=== PATIENT | male | born 1950 | race Caucasian/White ===

== ENCOUNTER → 2025-01-15 08:40 | Outpatient (BNVA) | payer OTHER, SELFPAY | PROVIDERS: Referring Provider Family Medicine; Visit Provider Anesthesiology Pain Medicine | DX: M54.2 Cervicalgia (principal); M54.9 Dorsalgia, unspecified; M43.26 Fusion of spine, lumbar region; M51.16 Intervertebral disc disorders with radiculopathy, lumbar region; Z87.891 Personal history of nicotine dependence | CPT/HCPCS: 72040; 72072; 72110 ==

== ENCOUNTER 2025-01-25 08:33 | Outpatient (CLI) | payer OTHER, SELFPAY ==
--- NOTE | 2025-01-25 08:45 | MR_ITS ---
WS: [id number] MRI LUMBAR SPINE NONCONTRAST TECHNIQUE: Sagittal T1, T2 and STIR imaging. Axial T1 and T2 imaging. CLINICAL INFORMATION: M54.16 - Radiculopathy, lumbar region COMPARISON: None. FINDINGS: Mild lumbar curve. Moderate spondylitic changes. Disc space narrowing L2-L3. Endplate degenerative changes at this level. Pedicle screw fixation L4-5 with interbody fusion. L1-L2: Mild annular bulging. Mild facet arthropathy. Slight narrowing of the subarticular recess bilaterally. Mild RIGHT foraminal narrowing. L2-L3: Disc osteophyte complex with impingement on the LEFT subarticular recess. LEFT foraminal protrusion with moderate to severe LEFT foraminal narrowing and impingement on the exiting LEFT L2 nerve root. Moderate facet arthropathy. L3-L4: Slight retrolisthesis. Mild annular bulging. Impingement RIGHT greater than LEFT subarticular recess. Moderate facet arthropathy. Moderate LEFT greater than RIGHT foraminal narrowing. L4-L5: Postoperative changes. Laminectomy defects. Spinal canal and foramen are patent. L5-S1: Disc osteophyte complex with endplate ridging. Impingement RIGHT S1 nerve root. Moderate RIGHT and mild to moderate LEFT foraminal narrowing. Advanced facet arthropathy at this level. Visualized pelvic bony structures: Normal. Paravertebral soft tissues: Normal. MR/MR lumbar spine wo con* [id number] IMPRESSION: 1. Pedicle screw fixation L4-L5 with interbody fusion graft. 2. Disc osteophyte complex L2-3 with impingement LEFT subarticular recess and moderate to severe LEFT foraminal narrowing. 3. Disc bulging L3-4 with impingement on the RIGHT greater than LEFT subarticu lar recess and mild central canal stenosis. Moderate bilateral foraminal narrow ing. 4. Disc osteophyte complex L5-S1 impinges the RIGHT S1 nerve root in the subar ticular recess. Moderate RIGHT foraminal narrowing.
== END 2025-01-25 08:34 | disposition home or self-care (01) ==
LOC: RAD 08:36
PROVIDERS: PCP Family Medicine; Visit Provider Anesthesiology Pain Medicine
DX: M54.16 Radiculopathy, lumbar region (principal); Z98.890 Other specified postprocedural states; M25.78 Osteophyte, vertebrae; R93.7 Abnormal findings on diagnostic imaging of other parts of musculoskeletal system; M48.061 Spinal stenosis, lumbar region without neurogenic claudication; M51.369 Other intervertebral disc degeneration, lumbar region without mention of lumbar back pain or lower extremity pain; M48.07 Spinal stenosis, lumbosacral region; M43.8X6 Other specified deforming dorsopathies, lumbar region; M47.896 Other spondylosis, lumbar region; M47.897 Other spondylosis, lumbosacral region
CPT/HCPCS: 72148

== ENCOUNTER 2025-02-13 08:54 | Oncology outpatient (recurring) (ONCR) | payer MEDICARE, OTHER, SELFPAY ==
[2025-02-13 09:56] VITALS: BP 150/77; PULSE 59; RESP 16; TEMP 35.7; O2SAT 96
[2025-02-13] MEDS: SODIUM CHLORIDE 0.9% IV (10:27)
[2025-02-13] MEDS: [UNRECOGNIZED DRUG - OTHER] IV (10:27)
[2025-02-13 11:19] VITALS: BP 188/76; PULSE 62; RESP 17; TEMP 36.2; O2SAT 96
== END 2025-02-13 23:59 | disposition home or self-care (01) ==
PROVIDERS: PCP Family Medicine; Visit Provider Neuromusculoskeletal Medicine & OMM
DX: G70.00 Myasthenia gravis without (acute) exacerbation (principal); Z79.899 Other long term (current) drug therapy
CPT/HCPCS: 96413; A4222; J1303

== ENCOUNTER 2025-04-10 13:34 | Oncology outpatient (recurring) (ONCR) | payer MEDICARE, OTHER, SELFPAY ==
[2025-04-10] MEDS: [UNRECOGNIZED DRUG - OTHER] IV (15:08)
[2025-04-10] MEDS: SODIUM CHLORIDE 0.9% IV (15:08)
[2025-04-10 15:56] VITALS: BP 134/76; PULSE 56; RESP 17; TEMP 36.4; O2SAT 96
== END 2025-04-10 23:59 | disposition home or self-care (01) ==
PROVIDERS: PCP Family Medicine; Visit Provider Neuromusculoskeletal Medicine & OMM
DX: G70.00 Myasthenia gravis without (acute) exacerbation (principal); Z79.899 Other long term (current) drug therapy
CPT/HCPCS: 96413; A4222; J1303

== ENCOUNTER 2025-06-05 13:49 | Oncology outpatient (recurring) (ONCR) | payer MEDICARE, OTHER, SELFPAY ==
[2025-06-05] MEDS: [UNRECOGNIZED DRUG - OTHER] IV (15:09)
[2025-06-05] MEDS: SODIUM CHLORIDE 0.9% IV (15:09)
[2025-06-05 15:50] VITALS: BP 120/69; PULSE 51; TEMP 36.1; O2SAT 96
== END 2025-06-05 23:59 | disposition home or self-care (01) ==
PROVIDERS: PCP Family Medicine; Visit Provider Neuromusculoskeletal Medicine & OMM
DX: G70.00 Myasthenia gravis without (acute) exacerbation (principal); Z79.899 Other long term (current) drug therapy
CPT/HCPCS: 96413; A4222; J1303

== ENCOUNTER 2025-07-31 08:55 | Oncology outpatient (recurring) (ONCR) | payer MEDICARE, OTHER, SELFPAY ==
[2025-07-31 09:19] VITALS: BP 164/84; PULSE 47; TEMP 36.6; O2SAT 97
[2025-07-31] MEDS: SODIUM CHLORIDE 0.9% IV (09:41)
[2025-07-31] MEDS: [UNRECOGNIZED DRUG - OTHER] IV (09:41)
== END 2025-07-31 23:59 | disposition home or self-care (01) ==
PROVIDERS: PCP Family Medicine; Visit Provider Neuromusculoskeletal Medicine & OMM
DX: G70.00 Myasthenia gravis without (acute) exacerbation (principal); Z79.899 Other long term (current) drug therapy
CPT/HCPCS: 96413; A4222; J1303

== ENCOUNTER 2025-09-25 09:56 | Oncology outpatient (recurring) (ONCR) | payer MEDICARE, OTHER, SELFPAY ==
[2025-09-25 10:08] VITALS: BP 159/89; PULSE 71; RESP 17; TEMP 36.5; O2SAT 94
[2025-09-25] MEDS: SODIUM CHLORIDE 0.9% IV (10:34)
[2025-09-25] MEDS: [UNRECOGNIZED DRUG - OTHER] IV (10:34)
[2025-09-25 11:19] VITALS: BP 163/88; PULSE 52; RESP 16; TEMP 36.2; O2SAT 93
== END 2025-09-25 23:59 | disposition home or self-care (01) ==
PROVIDERS: PCP Family Medicine; Visit Provider Neuromusculoskeletal Medicine & OMM
DX: G70.00 Myasthenia gravis without (acute) exacerbation (principal); Z79.899 Other long term (current) drug therapy
CPT/HCPCS: 96413; A4222; J1303